=== PATIENT | female | born 1940 | race Caucasian/White ===

== ENCOUNTER 2017-05-03 04:09 | Emergency (ER) | payer OTHER ==
[~2017-05-03] VITALS: Ht 165.1 cm; Wt 57.5 kg
[~2017-05-03 04:09] MED LIST: ANEXSIA 7.5-651 EACH PO; HYCODAN SYRUP480 ML PO; HYDROCHLOROTHIA25 MG PO; IBUPROFEN800 MG PO; TAMIFLU75 MG PO
[2017-05-03] MEDS ORDERED: KEFLEX250 MG PO (05:35)
[2017-05-03 05:59] VITALS: BP 178/84
[2017-05-03] MEDS ORDERED: ROPINIROLE HCL1 MG PO (12:17)
[2017-05-03] MEDS ORDERED: CLINORIL150 MG PO (12:17)
[2017-05-03] MEDS ORDERED: TRAZODONE HCL50 MG PO (12:18)
[2017-05-03] MEDS ORDERED: CITALOPRAM HBR40 MG PO (12:18)
[2017-05-03] MEDS ORDERED: METFORMIN HCL500 MG PO (12:18)
[2017-05-03] MEDS ORDERED: VENTOLIN HFA18 GM IH (12:18)
[2017-05-03] MEDS ORDERED: ASPIRIN EC325 MG PO (12:19)
[2017-05-03] MEDS ORDERED: B COMPLEX #11 EACH PO (12:19)
[2017-05-03] MEDS ORDERED: VITAMIN D31000 UNI2 PO (12:20)
[2017-05-03] MEDS ORDERED: LOVASTATIN10 MG PO (12:21)
[2017-05-04] MEDS ORDERED: LOVASTATIN10 MG PO (14:10)
== END 2017-05-03 06:11 | disposition home or self-care (01) ==
LOC: EME → EDBD 04:09 → EME 04:09
PROC: 2Y41X5Z Packing of Nasal Region using Packing Material (ICD-10-PCS; principal; 2017-05-03)
DX: R04.0 Epistaxis (principal); E11.9 Type 2 diabetes mellitus without complications; E78.5 Hyperlipidemia, unspecified; I10 Essential (primary) hypertension; Z87.891 Personal history of nicotine dependence; Z79.4 Long term (current) use of insulin
CPT/HCPCS: 99281; 99284

== ENCOUNTER 2017-05-03 09:03 | Observation (INO) | payer OTHER ==
[~2017-05-03] VITALS: Ht 162.6 cm; Wt 61.2 kg
[~2017-05-03 09:03] MED LIST changes: +KEFLEX250 MG PO
[2017-05-03 09:59] LABS: HEMATOCRIT 35.7 % (36.0-46.0); MCH 30.1 PG (29.0-34.0); MCHC 34.5 G/DL (30.0-36.0); MCV 87.5 FL (83-99); PLATELET COUNT 260 K/uL (156-360); RBC DIS.WIDTH-CV 12.4 % (11.8-14.6); RBC DIS.WIDTH-SD 39.8 % (39-53); RED BLOOD COUNT 4.08 M/uL (3.80-5.20); WHITE BLOOD COUNT 8.1 K/uL (4.1-10.2)
[2017-05-03 10:07] LABS: CHLORIDE 98 mEq/L (99-109); POTASSIUM 2.6 mEq/L (3.7-5.4); SODIUM 140 mEq/L (136-147)
[2017-05-03 10:09] LABS: GLUCOSE 108 mg/dL (70-99)
[2017-05-03 10:10] LABS: ANION GAP 12 MEQ/L (2-14)
[2017-05-03 10:13] LABS: GFR ESTIMATE (CALCULATED) > 59 mL/min/
[2017-05-03 10:14] LABS: UREA NITROGEN (BUN) 17 mg/dL (9-23)
[2017-05-03 10:18] LABS: TROP-I INTERPRETATION NEGATIVE; TROPONIN-I < 0.01 ng/mL (0.0-0.30)
[2017-05-03 11:10] LABS: MAGNESIUM 1.3 mg/dL (1.3-2.7)
[2017-05-03] MEDS ORDERED: CLINORIL150 MG PO (12:17)
[2017-05-03] MEDS ORDERED: ROPINIROLE HCL1 MG PO (12:17)
[2017-05-03] MEDS ORDERED: METFORMIN HCL500 MG PO (12:18)
[2017-05-03] MEDS ORDERED: VENTOLIN HFA18 GM IH (12:18)
[2017-05-03] MEDS ORDERED: TRAZODONE HCL50 MG PO (12:18)
[2017-05-03] MEDS ORDERED: CITALOPRAM HBR40 MG PO (12:18)
[2017-05-03] MEDS ORDERED: B COMPLEX #11 EACH PO (12:19)
[2017-05-03] MEDS ORDERED: ASPIRIN EC325 MG PO (12:19)
[2017-05-03] MEDS ORDERED: VITAMIN D31000 UNI2 PO (12:20)
[2017-05-03] MEDS ORDERED: LOVASTATIN10 MG PO (12:21)
[2017-05-03 13:32] VITALS: BP 187/83
[2017-05-03 15:30] VITALS: BP 165/82
[2017-05-03 17:04] LABS: POINT-OF-CARE METER ID UU14162513
[2017-05-03 17:46] LABS: ANION GAP 6 MEQ/L (2-14); CHLORIDE 106 MEQ/L (99-109); GFR ESTIMATE (CALCULATED) > 59 mL/min/; GLUCOSE 98 mg/dL (70-99); MAGNESIUM 1.2 mg/dl (1.3-2.7); POTASSIUM 3.1 MEQ/L (3.7-5.4); SAMPLE HEMOLYSIS CHECK 0; SAMPLE ICTERIC CHECK 0; SAMPLE LIPEMIA CHECK 0; SODIUM 142 MEQ/L (136-147); UREA NITROGEN (BUN) 12 mg/dL (9-23)
[2017-05-03 19:20] VITALS: BP 171/83
[2017-05-03 21:34] LABS: POINT-OF-CARE METER ID UU14162513
[2017-05-03 23:31] VITALS: BP 139/64
[2017-05-04 04:30] VITALS: BP 168/95
[2017-05-04 06:12] LABS: HEMATOCRIT 32.6 % (36.0-46.0); MCH 30.9 PG (29.0-34.0); MCHC 34.4 G/DL (30.0-36.0); MCV 89.8 FL (83-99); MEAN PLAT.VOLUME 10.2 uM^3 (9.5-12.4); PLATELET COUNT 217 K/uL (156-360); RBC DIS.WIDTH-CV 12.9 % (11.8-14.6); RBC DIS.WIDTH-SD 42.7 % (39-53); RED BLOOD COUNT 3.63 M/uL (3.80-5.20)
[2017-05-04 06:35] LABS: ALKALINE PHOSPHATASE 55 IU/L (3-129); ANION GAP 9 MEQ/L (2-14); CHLORIDE 105 MEQ/L (99-109); GFR ESTIMATE (CALCULATED) > 59 mL/min/; GLUCOSE 101 mg/dL (70-99); POTASSIUM 3.1 MEQ/L (3.7-5.4); SAMPLE HEMOLYSIS CHECK 0; SAMPLE ICTERIC CHECK 0; SAMPLE LIPEMIA CHECK 0; SODIUM 142 MEQ/L (136-147); TOTAL BILIRUBIN 0.5 MG/DL (0.0-1.0); UREA NITROGEN (BUN) 9 mg/dL (9-23)
[2017-05-04 07:25] VITALS: BP 150/76
[2017-05-04 08:28] LABS: POINT-OF-CARE METER ID UU13113831
[2017-05-04 11:32] VITALS: BP 184/81
[2017-05-04 13:51] LABS: ANION GAP 7 MEQ/L (2-14); CHLORIDE 100 MEQ/L (99-109); GFR ESTIMATE (CALCULATED) > 59 mL/min/; GLUCOSE 96 mg/dL (70-99); POTASSIUM 3.7 MEQ/L (3.7-5.4); SAMPLE HEMOLYSIS CHECK 0; SAMPLE ICTERIC CHECK 0; SAMPLE LIPEMIA CHECK 0; SODIUM 138 MEQ/L (136-147); UREA NITROGEN (BUN) 8 mg/dL (9-23)
[2017-05-04] MEDS ORDERED: LOVASTATIN10 MG PO (14:10)
== END 2017-05-04 15:10 | disposition home or self-care (01) ==
LOC: EME 09:03 → 5WEST 12:16 → EDOF 12:16 → ENRESERV 12:23 → 5WEST 13:25
PROVIDERS: Emergency Medicine; Hospitalist; Nurse Practitioner Adult Health
PROC: 2Y41X5Z Packing of Nasal Region using Packing Material (ICD-10-PCS; principal; 2017-05-03)
DX: R04.0 Epistaxis (principal); E87.6 Hypokalemia; R55 Syncope and collapse; I10 Essential (primary) hypertension; Z79.82 Long term (current) use of aspirin; Z79.84 Long term (current) use of oral hypoglycemic drugs; E86.0 Dehydration; W19.XXXA Unspecified fall, initial encounter; Z66 Do not resuscitate; Z91.09 Other allergy status, other than to drugs and biological substances
CPT/HCPCS: 71010; 80048; 80048 91; 80053; 82948; 83735; 84484; 85027; 93005; 99202; 99281; 99284; G0378; J2060; J3475; J3480; J7030

== ENCOUNTER 2017-11-10 10:54 | Emergency (ER) | payer OTHER ==
[~2017-11-10] VITALS: Ht 165.1 cm; Wt 59.4 kg
[~2017-11-10 10:54] MED LIST changes: +ASPIRIN EC325 MG PO; +B COMPLEX #11 EACH PO; +CITALOPRAM HBR40 MG PO; +CLINORIL150 MG PO; +LOVASTATIN10 MG PO; +METFORMIN HCL500 MG PO; +ROPINIROLE HCL1 MG PO; +TRAZODONE HCL50 MG PO; +VENTOLIN HFA18 GM IH; +VITAMIN D31000 UNI2 PO
[2017-11-10 12:10] LABS: BASOPHIL (%) 0.5 % (0-1); EOSINOPHIL (%) 2.1 % (0-5); EOSINOPHIL COUNT 0.1 K/uL (0-0.3); HEMATOCRIT 38.2 % (36.0-46.0); HEMOGLOBIN 12.8 G/DL (11.9-15.5); IMMATURE GRANULOCYTE (%) 0.2 % (0.0-0.7); LYMPHOCYTE (%) 26.5 % (15-42); LYMPHOCYTE COUNT 1.7 K/uL (1.0-2.8); MCH 29.9 PG (29.0-34.0); MCHC 33.5 G/DL (30.0-36.0); MCV 89.3 FL (83-99); MONOCYTE COUNT 0.6 K/uL (0-0.8); NEUTROPHIL (%) 61.7 % (45-76); NEUTROPHIL COUNT 4.1 K/uL (1.8-6.4); PLATELET COUNT 227 K/uL (156-360); RBC DIS.WIDTH-CV 12.6 % (11.8-14.6); RBC DIS.WIDTH-SD 41.4 % (39-53); RED BLOOD COUNT 4.28 M/uL (3.80-5.20); WHITE BLOOD COUNT 6.6 K/uL (4.1-10.2)
[2017-11-10 12:32] LABS: CHLORIDE 103 mEq/L (99-109); POTASSIUM 3.6 mEq/L (3.7-5.4); SODIUM 138 mEq/L (136-147)
[2017-11-10 12:33] LABS: GLUCOSE 116 mg/dL (70-99)
[2017-11-10 12:37] LABS: CREATININE 0.7 mg/dL (0.6-1.3); GFR ESTIMATE (CALCULATED) > 59 mL/min/
[2017-11-10 12:38] LABS: UREA NITROGEN (BUN) 16 mg/dL (9-23)
[2017-11-10] MEDS ORDERED: MOTRIN800 MG PO (13:30)
[2017-11-10 14:05] VITALS: BP 149/75
== END 2017-11-10 14:07 | disposition home or self-care (01) ==
LOC: EME 10:54
PROVIDERS: Emergency Medicine
DX: S86.912A Strain of unspecified muscle(s) and tendon(s) at lower leg level, left leg, initial encounter (principal); E87.6 Hypokalemia; W06.XXXA Fall from bed, initial encounter; Z86.718 Personal history of other venous thrombosis and embolism; K21.9 Gastro-esophageal reflux disease without esophagitis; I10 Essential (primary) hypertension; E78.5 Hyperlipidemia, unspecified; E11.9 Type 2 diabetes mellitus without complications; F41.9 Anxiety disorder, unspecified; F32.9 Major depressive disorder, single episode, unspecified; Z90.49 Acquired absence of other specified parts of digestive tract; Z79.84 Long term (current) use of oral hypoglycemic drugs; Z87.891 Personal history of nicotine dependence
CPT/HCPCS: 73590; 80048; 85025; 93971; 99281; 99284